=== PATIENT | female | born 1965 | race Caucasian/White ===

== ENCOUNTER → 2022-01-26 | Outpatient (CLI) | payer OTHER ==
[2022-01-26 13:23] VITALS: BP 135/90; PULSE 105; TEMP 98.1; BMI 46.2
--- NOTE | 2022-01-26 13:43 | P.HPBAR ---
Bariatric H&P - History & Physicial H&P Date: 01/26/22 History & Physicial: Visit/CC: new patient Patient initial contact: Initial weight: Initial weight in pounds: Height: 5 ft 3 in Initial BMI: Last weight: Current weight: 118.388 kg Current weight in pounds: 261.00 Current BMI: 46.2 [place] body weight (based on NIH guidelines): 52.163 kg Excess body weight loss: The patient is a 56 year-old F who presents for Bariatric Assessment. She is looking into a hernia repair. No weight loss for right now. Recommend lower endoscopy as she is due. Recommend labs and EKG. She had a CT done at a prior institution last year. Recommend correct nutrition and evaluation for hernia with imaging. Past Medical History Past Medical History: Hyperlipidemia, Hypertension, Thyroid Disorder Additional Past Medical History / Comment(s): Vertigo, dizziness, brain fog post COVID 04/24/2021 History of Any Multi-Drug Resistant Organisms: None Reported Past Surgical History: Cholecystectomy, Hernia Repair, Tonsillectomy Additional Past Surgical History / Comment(s): Bilateral cataract surgery 2020, multiple right eye surgeries Past Anesthesia/Blood Transfusion Reactions: Motion Sickness, Postoperative Nausea & Vomiting (PONV) Past Psychological History: Depression, Panic Disorder Smoking Status: Current every day smoker Past Alcohol Use History: Occasional Additional Past Alcohol Use History / Comment(s): "on the weekends" Past Drug Use History: None Reported Surgical - Exam Vital Signs Temp Pulse BP 98.1 F 105 H 135/90 01/26/22 13:15 01/26/22 13:15 01/26/22 13:15 Bariatric Checklist Checklist: Plan: Checklist: EGD: 1. Hiatal hernia: 2. H. Pylori: HgbA1c: Vitamin D: Smoking: Primary care physician referral: Dr. Chavez Psychiatry clearance: Cardiology clearance: Sleep study: Diet journal: VTE risk score: VTE risk level: Rehab needs at discharge:
[2022-01-26 14:59] LABS: INR 0.9 (<1.2); Partial Thromboplastin Time 25.1 sec (22.0-30.0); Prothrombin Time 10.1 sec (9.0-12.0)
[2022-01-26 15:03] LABS: HCT 45.1 % (34.0-46.0); HGB 14.7 gm/dL (11.4-16.0); MCH 32.8 pg (25.0-35.0); MCHC 32.5 g/dL (31.0-37.0); MCV 100.6 fL (80.0-100.0); Mean Platelet Volume 8.2; Platelet Count 376 k/uL (150-450); RBC 4.48 m/uL (3.80-5.40); RDW 13.3 % (11.5-15.5)
[2022-01-26 18:29] LABS: % Iron Saturation 15.03 (12.00-45.00); ALT 17 U/L (8-44); AST 19 U/L (13-35); African American GFR (CKD) 125.4 (60.0-200.0); Albumin 4.5 g/dL (3.8-4.9); Albumin/Globulin Ratio 1.55 (1.60-3.17); Alkaline Phosphatase 61 U/L (41-126); Calcium 9.7 mg/dL (8.7-10.3); Chloride 98 mmol/L (96-109); Ferritin 88.8 ng/mL (10.0-291.0); Globulin 2.9 g/dL (1.6-3.3); Glucose 104 mg/dL (70-110); Iron 63 ug/dL (50-170); Magnesium 2.1 mg/dL (1.5-2.4); Non-African American GFR(CKD) 108.2 (60.0-200.0); Sodium 137 mmol/L (135-145); Total Iron Binding Capacity 419 ug/dL (228-460); Total Protein 7.4 g/dL (6.2-8.2)
[2022-01-26 19:13] LABS: Chol/HDL Ratio 3.06 Ratio; LDL Cholesterol,Calculated 108.6 mg/dL (0.0-131.0); Prealbumin 18.1 mg/dL (18.0-42.0)
[2022-01-27 11:48] LABS: Zinc, Serum 59 ug/dL (60-130)
[2022-01-28 06:13] LABS: Vitamin A 32 ug/dL (38-106)
[2022-01-28 09:39] LABS: Vit B1(Thiamine) 88 ug/L (38-122)
== END | disposition home or self-care (01) ==
LOC: BARWHC3 12:56
PROVIDERS: ATTEND Surgery Plastic and Reconstructive Surgery
DX: E66.01 Morbid (severe) obesity due to excess calories (principal); D50.8 Other iron deficiency anemias; K91.2 Postsurgical malabsorption, not elsewhere classified; E44.0 Moderate protein-calorie malnutrition; E44.1 Mild protein-calorie malnutrition; E45 Retarded development following protein-calorie malnutrition; E46 Unspecified protein-calorie malnutrition; E55.9 Vitamin D deficiency, unspecified; K74.1 Hepatic sclerosis; N19 Unspecified kidney failure; T56.894A Toxic effect of other metals, undetermined, initial encounter; Z71.51 Drug abuse counseling and surveillance of drug abuser
CPT/HCPCS: 84255; 84134; 84425; 80061; 80053; 82607; 82728; 82525; 82746; 83540; 83550; 83735; 84100; 84443; 84590; 84630; 85027; 85610; 85730; 82306; 83970; 80307; G0480; G0482; G0463; 80323; 99203

== ENCOUNTER → 2024-10-16 | Outpatient (CLI) | payer MEDICARE ==
[2024-10-16 15:21] VITALS: BP 141/83; PULSE 83; RESP 16; TEMP 98.4; BMI 50.5
--- NOTE | 2024-10-16 15:55 | P.HPBAR ---
Bariatric H&P - History & Physicial H&P Date: 10/16/24 History & Physicial: Visit/CC: new patient Patient initial contact: Initial weight: 128.367 kg Initial weight in pounds: 283.00 Height: 5 ft 2.75 in Initial BMI: 50.5 Last weight: Current weight: 128.367 kg Current weight in pounds: 283.00 Current BMI: 50.5 [place] body weight (based on NIH guidelines): 51.7 kg Excess body weight loss: 0.0% The patient is a 58 year-old F who presents for Bariatric Assessment. Highest weigt today 283 pounds. Diets tried include Atkins, HCG diet, 500 kcal daily carb restriction. Family maternal grandmother with weight issues. Mom was overweight. Has lower back pain. Right hip pain. Left knee. No ankle. Has leg swelling rarely. No trouble swallowing. NO GERD. No colon cancer. Father has ulcerative colitis and ETOH. No gallbladder. No DVT or PE in the family. Only needs psych and PCP. Not sure of procedure at this time. May need thyroid adjustment. Has Eliquis. She sees a heart doctor and is on eliquis. Past Medical History Past Medical History: Atrial Fibrillation, Hyperlipidemia, Hypertension, Thyroid Disorder Additional Past Medical History / Comment(s): Vertigo, dizziness, brain fog post COVID 04/24/2021, granuloma annular skin disorder, uveitis-Rt eye History of Any Multi-Drug Resistant Organisms: None Reported Past Surgical History: Cholecystectomy, Hernia Repair, Tonsillectomy Additional Past Surgical History / Comment(s): Bilateral cataract surgery 2020, multiple right eye surgeries, Cardioversion for AFIB Past Anesthesia/Blood Transfusion Reactions: Motion Sickness, Postoperative Nausea & Vomiting (PONV) Smoking Status: Former smoker - Past Family History Mother Family Medical History: Cancer, Hyperlipidemia, Hypertension Additional Family Medical History / Comment(s): Lung CA, Demetia/NETS Surgical - Exam Vital Signs Temp Pulse Resp BP 98.4 F 83 16 141/83 10/16/24 15:15 10/16/24 15:15 10/16/24 15:15 10/16/24 15:15 Bariatric Checklist Checklist: Plan: Checklist: EGD: 1. Hiatal hernia: 2. H. Pylori: HgbA1c: Vitamin D: Smoking: Primary care physician referral: Dr. Chavez Psychiatry clearance: Cardiology clearance: Sleep study: Diet journal: VTE risk score: VTE risk level: Rehab needs at discharge:
== END ==
LOC: BARWHC3 14:06
PROVIDERS: ATTEND Surgery Plastic and Reconstructive Surgery
DX: E66.01 Morbid (severe) obesity due to excess calories (principal); Z87.891 Personal history of nicotine dependence; Z88.0 Allergy status to penicillin; Z88.2 Allergy status to sulfonamides; Z68.43 Body mass index [BMI] 50.0-59.9, adult
CPT/HCPCS: 99212